=== PATIENT | male | born 1965 | race Caucasian/White ===

== ENCOUNTER 2018-04-28 02:45 | Inpatient (IN) | payer OTHER ==
[~2018-04-28] VITALS: Ht 182.9 cm; Wt 145.3 kg
--- NOTE | ~2018-04-28 | EKG ---
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 Electronically Signed On 04-28-2018 12:33:04 PDT by Bhavik Ly MD CM:EKGRPT:ELECTROCARDIOGRAM REPORT [id number] 1233 ROSANA JOHNSON DRAFT REPORT ROSANA BAKER DO
--- NOTE | ~2018-04-28 | EKG ---
[place], [place] ELECTROCARDIOGRAM REPORT NAME: INGRID DALAL UNIT #: [id number] ROOM: 402 DOCTOR: YAHAIRA DRAFT REPORT BIRTHDATE: [birth year] [facility] Test Date: 2018-04-28 Test Time: 05:50:28 Pat Name: INGRID DALAL Department: Room: 402 Gender: M Splitter Head: Savanah Rodriguez : 1965 Requested By: ROSANA BAKER Order Number: [id number] Reading MD: Bhavik Ly MD Measurements Intervals [place] Rate: 63 P: -31 [place]: 202 QRS: -5 QRSD: 113 T: 40 QT: 417 QTc: 427 Interpretive Statements Sinus rhythm No change from earlier ECG this date. Electronically Signed On 04-28-2018 12:31:27 PDT by Bhavik Ly MD CM:EKGRPT:ELECTROCARDIOGRAM REPORT 0550 1231 ROSANA JOHNSON DRAFT REPORT ROSANA BAKER DO
--- NOTE | ~2018-04-28 | EKG ---
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
[2018-04-28 02:47] VITALS: BP 175/99
[2018-04-28 03:05] LABS: BASO # 0.1 10*3/uL (0.0-0.1); BASO % 0.7 % (0.0-1.0); EOS # 0.2 10*3/uL (0.0-0.4); EOS % 2.4 % (1.0-4.0); HEMATOCRIT 43.4 % (42.0-52.0); HEMOGLOBIN 14.5 g/dl (14.0-18.0); LYMPH # 2.3 10*3/uL (1.3-4.4); LYMPH % 29.7 % (27.0-41.0); MEAN CELL VOLUME 91.8 fl (80.0-94.0); MEAN CORPUSCULAR HGB 30.7 pg (27.0-31.0); MEAN CORPUSCULAR HGB CONC 33.4 g/dl (33.0-37.0); MEAN PLATELET VOLUME 9.5 fl (9.6-12.3); MONO # 0.7 10*3/uL (0.1-1.0); NEUT # 4.4 10*3/uL (2.3-7.9); NEUT % 58.1 % (47.0-73.0); PLATELET COUNT AUTOMATED 257 10*3/uL (130-400); RED BLOOD COUNT 4.73 10*6/uL (4.50-5.90); RED CELL DISTRI WIDTH 13.4 % (0-14.5); WHITE BLOOD COUNT 7.6 10*3/uL (4.8-10.8)
[2018-04-28 03:15] LABS: ACT PARTIAL THROMBO TIME 21.5 SECONDS (20.8-31.5)
[2018-04-28 03:21] LABS: ALBUMIN 3.9 gm/dl (3.1-4.5); ALKALINE PHOSPHATASE 59 U/L (45-117); BUN 17 mg/dl (7-24); CHLORIDE 107 mmol/L (98-107); CREATININE 0.89 mg/dL (0.70-1.30); POTASSIUM 3.9 mmol/L (3.5-5.1); SGOT/AST 12 IU/L (3-35); SGPT/ALT 17 U/L (12-78); SODIUM 144 mmol/L (136-145); TOTAL PROTEIN 7.4 gm/dL (6.4-8.2); TROPONIN I < 0.015 ng/ml (<0.045)
[2018-04-28 04:00] VITALS: BP 130/79
[2018-04-28] MEDS ORDERED: ZESTRIL40 MG PO (05:44)
[2018-04-28] MEDS ORDERED: NORVASC5 MG PO (05:44)
[2018-04-28 08:00] VITALS: BP 130/79
[2018-04-28 12:00] VITALS: BP 139/82
[2018-04-28 16:00] VITALS: BP 127/70
[2018-04-28 20:00] VITALS: BP 102/55
[2018-04-29] VITALS: BP 115/66
[2018-04-29 06:54] LABS: BASO # 0.1 10*3/uL (0.0-0.1); EOS # 0.1 10*3/uL (0.0-0.4); EOS % 2.6 % (1.0-4.0); HEMOGLOBIN 12.8 g/dl (14.0-18.0); LYMPH # 1.1 10*3/uL (1.3-4.4); LYMPH % 22.7 % (27.0-41.0); MEAN CELL VOLUME 93.2 fl (80.0-94.0); MEAN CORPUSCULAR HGB 29.8 pg (27.0-31.0); MEAN PLATELET VOLUME 10.2 fl (9.6-12.3); MONO # 0.5 10*3/uL (0.1-1.0); MONO % 9.6 % (3.0-9.0); NEUT # 3.2 10*3/uL (2.3-7.9); NEUT % 63.9 % (47.0-73.0); PLATELET COUNT AUTOMATED 217 10*3/uL (130-400); RED BLOOD COUNT 4.29 10*6/uL (4.50-5.90); RED CELL DISTRI WIDTH 13.4 % (0-14.5)
[2018-04-29 07:12] LABS: BUN 12 mg/dl (7-24); CHLORIDE 107 mmol/L (98-107); CHOLESTEROL 116 mg/dL (<200); CREATININE 0.66 mg/dL (0.70-1.30); PHOSPHOROUS 3.1 mg/dL (2.5-4.9); POTASSIUM 3.9 mmol/L (3.5-5.1); SODIUM 140 mmol/L (136-145); TRIGLYCERIDES 56 mg/dl (<150); VLDL CHOLESTEROL 11 mg/dL (6-40)
[2018-04-29 07:21] LABS: HDL CHOLESTEROL 29 mg/dl (40-60); LDL CHOLESTEROL 76 mg/dL (9-159); THYROID STIM HORMONE (HS) 0.725 uIU/ml (0.358-4.75)
[2018-04-29 08:00] VITALS: BP 128/82
[2018-04-29 08:57] LABS: VITAMIN D, 25-HYDROXY 19.1 ng/mL (30-100)
[2018-04-29 11:32] VITALS: BP 131/78
== END 2018-04-29 13:30 | disposition home or self-care (01) | DRG 445 ==
LOC: ED 02:45 → EDHOLD 05:22 → 4E 05:22
PROVIDERS: Student in an Organized Health Care Education/Training Program
DX: K81.9 Cholecystitis, unspecified (principal); Z68.41 Body mass index [BMI] 40.0-44.9, adult; R93.5 Abnormal findings on diagnostic imaging of other abdominal regions, including retroperitoneum; E83.41 Hypermagnesemia; R73.9 Hyperglycemia, unspecified; R10.84 Generalized abdominal pain; E66.01 Morbid (severe) obesity due to excess calories; I10 Essential (primary) hypertension; Z82.49 Family history of ischemic heart disease and other diseases of the circulatory system; Z80.8 Family history of malignant neoplasm of other organs or systems